=== PATIENT | female | born 1950 | race Caucasian/White ===

== ENCOUNTER → 2016-11-02 | Outpatient (CLI) | payer OTHER ==
[~2016-11-02] MED LIST: AMOXICILLIN500 M1 PO; ASPIRIN81 M2 PO; ATIVAN PO; ATIVAN2 MG PO; CELEBREX PO; COREG3.125 MG PO; COUMADIN PO; FERROUS SULFATE PO; LIPITOR40 MG PO; LORTAB 7.51 TAB 7.5/ PO; MOBIC PO; MOTRIN400 M1 PO; MULTIVITAMIN W-1 TAB PO; OYSTER CALCIUM500 MG PO; PERCOCET10 PO; PRAVACHOL PO; PROZAC40 MG PO; TEMOVATE 0.05%15 GM EXT; TOPAMAX PO; VITAMIN C PO
--- NOTE | ~2016-11-02 | MY11 ---
[facility]. [facility] A Service of [facility] RADIOLOGY TEXT RESULTS PATIENT: GREG MURPHY LOCATION: [facility] : 46 UNIT #: [id number] AGE: [address]: ENOCH DEUTSCH MD (INT MED) SEX: F ORDER DR: [id number] [address] [address] [id number] O MR#: [id number] Acc #: [id number] NAME: GREG MURPHY : 1950 SEX: F STUDY DATE/TIME: 11/02/2016 16:03 UNIT: [facility] ROOM: STUDY DESCRIPTION: MY Mammogram Screening Dig Candelario Attending Physician: Enoch Deutsch M.D. Referring Physician: Enoch Deutsch M.D. Ordering Physician: Enoch Deutsch M.D. Primary Care Physician: Enoch Deutsch M.D. MEDICAL IMAGING REPORT This report is preliminary unless electronic signature is present. EXAM Digital screening mammogram, 11/02/2016. HISTORY 66-year-old woman; positive family history, mother aged 65, sister age 45. 5 previous breast biopsies. Annual screening. COMPARISON Mammograms date to 05/12/2005, with most recent 08/29/2010. FINDINGS Digital imaging of each breast was completed, utilizing screening protocol. Multiple views are recorded to image larger breast structures. There are biopsy markers placed on each breast. Breast parenchyma is heterogeneous with scattered parenchymal nodularity, dominant in the left breast, but stable. There is no dominant or interval-occurring suspicious breast mass. There are no suspicious microcalcifications. Some areolar nipple complex retraction and stellate deformity, subareolar right location, is consistent with previous excisional biopsy. A marker is placed at this location, as well. IMPRESSION Stable benign mammogram. Annual screening recommended. Patients over the age of 40 are entered into a reminder system with target due date for the next mammogram. A result letter will also be sent to the patient. BIRADS: 2 Benign finding. [facility] A Service of [facility] RADIOLOGY TEXT RESULTS PATIENT: GREG MURPHY LOCATION: [facility] : 46 UNIT #: [id number] AGE: [address]: ENOCH DEUTSCH MD (INT [facility]) SEX: F ORDER DR: Dictated by... Russell Beal M.D. THIS IS AN ELECTRONICALLY VERIFIED REPORT Russell Beal M.D. at 11/03/2016 2:17 PM NURIA/faith TD: 11/03/2016 11:35 JOB #: [id number] MEDICAL IMAGING REPORT Page 1 of 1
== END | disposition home or self-care (01) ==
LOC: SMAM 15:30
DX: Z12.31 Encounter for screening mammogram for malignant neoplasm of breast (principal); Z80.3 Family history of malignant neoplasm of breast; Z98.890 Other specified postprocedural states
CPT/HCPCS: G0202